=== PATIENT | female | born 1985 | race Caucasian/White ===

== ENCOUNTER 2017-10-12 17:23 | Outpatient (CLI) | payer MEDICAID | END 2017-10-12 18:50 | disposition home or self-care (01) | LOC: OBT 17:23 → L-D 17:24 → OBT 18:50 | DX: O36.8130 Decreased fetal movements, third trimester, not applicable or unspecified (principal); Z3A.38 38 weeks gestation of pregnancy | CPT/HCPCS: 76818 ==

== ENCOUNTER 2017-10-19 16:46 | Outpatient (CLI) | payer MEDICAID ==
[2017-10-19] MEDS: LACTATED RINGER'S 1,000 ML IV (18:17)
== END 2017-10-19 18:48 | disposition home or self-care (01) ==
LOC: OBT 16:46 → L-D 16:47 → OBT 18:48
DX: O62.9 Abnormality of forces of labor, unspecified (principal); Z3A.39 39 weeks gestation of pregnancy
CPT/HCPCS: 36415; 96360

== ENCOUNTER 2017-10-24 11:49 | Inpatient (IN) | payer MEDICAID ==
[2017-10-24] MEDS ORDERED: CEFAZOLIN 2 GM/50 ML (PMX) 50 ML IV ×2 (12:00→20:30)
[2017-10-24] MEDS ORDERED: OXYTOCIN 30 UNITS/LR 500 ML IV ×5 (12:00→20:30)
[2017-10-24] MEDS ORDERED: MISOPROSTOL 200 MCG TAB PR ×3 (12:00→20:30)
[2017-10-24] MEDS ORDERED: METHYLERGONOVINE 0.2 MG INJ IM ×3 (12:00→20:30)
[2017-10-24] MEDS ORDERED: CARBOPROST 250 MCG INJ IM ×3 (12:00→20:30)
[2017-10-24 12:29] LABS: ADD MAN DIFF? NO
[2017-10-24] MEDS: LACTATED RINGER'S 1,000 ML IV ×2 (12:35→22:50)
[2017-10-24 12:38] LABS: BASOPHILS % 0.3 % (0.0-2.0); EOSINOPHILS # 0.1 10^3/ul (0.0-0.5); EOSINOPHILS % 1.3 % (0.0-7.0); HEMATOCRIT 36.4 % (37.0-47.0); HEMOGLOBIN 12.6 g/dl (12.0-16.0); LYMPHOCYTES # 1.6 10^3/ul (0.8-2.9); LYMPHOCYTES % 25.3 % (15.0-51.0); MEAN CORPUSCULAR HEMOGLOBIN 31.7 pg (29.0-33.0); MEAN CORPUSCULAR HGB CONC 34.6 g/dl (32.0-37.0); MEAN CORPUSCULAR VOLUME 91.7 fl (82.0-101.0); MEAN PLATELET VOLUME 11.6 fl (7.4-10.4); MONOCYTE # 0.3 10^3/ul (0.3-0.9); MONOCYTES % 5.4 % (0.0-11.0); NEUTROPHIL # 4.2 10^3/ul (1.6-7.5); NEUTROPHILS % 67.5 % (39.0-77.0); PLATELET COUNT 191 10^3/UL (140-415); RED BLOOD COUNT 3.97 10^6/ul (4.20-5.40); RED CELL DISTRIBUTION WIDTH 12.6 % (11.5-14.5)
[2017-10-24 12:38] LABS: WHITE BLOOD COUNT 6.2 10^3/ul (4.8-10.8)
[2017-10-24 13:13] LABS: INR 0.93; PARTIAL THROMBOPLASTIN TIME 29.2 Sec (25.0-35.0); PROTIME 12.6 Sec (11.9-14.9)
[2017-10-24 13:23] LABS: HEPATITIS B SURFACE ANTIGEN NEGATIVE (NEGATIVE)
[2017-10-24] MEDS ORDERED: morphine SULFATE/PF (10 MG/10 ML) INJ (16:29)
[2017-10-24] MEDS ORDERED: CITRIC ACID/SODIUM CITRATE 15 ML CUP (16:29)
[2017-10-24] MEDS ORDERED: BUPIVACAINE 0.75%/DEXT (SPINAL) 2 ML INJ (16:29)
[2017-10-24] MEDS ORDERED: PHENYLephrine (100 MCG/ML) 5ML SYG ×2 (16:38→17:10)
[2017-10-24] MEDS ORDERED: EPHEDrine SULFATE 50 MG/5 ML SYG (16:42)
[2017-10-24] MEDS ORDERED: ONDANSETRON 4 MG INJ (16:47)
[2017-10-24 17:23] LABS: RAPID PLASMA REAGIN NONREACTIVE (NR)
[2017-10-24] MEDS ORDERED: METOCLOPRAMIDE 10 MG INJ (17:36)
[2017-10-24] MEDS: METOCLOPRAMIDE 10 MG INJ IV (17:46)
[2017-10-24] MEDS ORDERED: ONDANSETRON 4 MG INJ IV ×2 (18:00→21:30)
[2017-10-24] MEDS ORDERED: PROCHLORPERAZINE 10 MG INJ IV (18:00)
[2017-10-24] MEDS ORDERED: DIPHENHYDRAMINE 50 MG INJ IV ×2 (18:00→21:30)
[2017-10-24] MEDS ORDERED: MEPERIDINE 25 MG INJ IV (18:00)
[2017-10-24] MEDS ORDERED: FENTAnyl 50 MCG/ML VIAL IV ×3 (18:00)
[2017-10-24] MEDS ORDERED: HYDROmorphONE 1 MG/5 ML IV SYRINGE IV ×3 (18:00)
[2017-10-24] MEDS: CITRIC ACID/SODIUM CITRATE 15 ML CUP PO (18:47)
[2017-10-24] MEDS: KETOROLAC 30 MG INJ IV (18:47)
[2017-10-24] MEDS ORDERED: LACTATED RINGER'S 1,000 ML IV (20:11)
[2017-10-24] MEDS ORDERED: LANOLIN 7 GM TUBE TOP (20:30)
[2017-10-24] MEDS ORDERED: NA PHOSPHATE/BIPHOS 133 ML ENEMA PR ×2 (20:30)
[2017-10-24] MEDS: SENNA/DOCUSATE NA (8.6MG/50MG) TAB PO (21:00)
[2017-10-24] MEDS ORDERED: SENNA/DOCUSATE NA (8.6MG/50MG) TAB PO (21:00)
[2017-10-24] MEDS ORDERED: HYDROmorphONE 0.5 MG/0.5 ML SYG IV ×2 (21:30)
[2017-10-24] MEDS ORDERED: ZOLPIDEM 5 MG TAB PO (21:30)
[2017-10-24] MEDS ORDERED: NALOXONE (0.4 MG/ML) INJ IV (21:30)
[2017-10-24] MEDS ORDERED: IBUPROFEN 800 MG TAB PO (22:00)
[2017-10-24] MEDS: CEFAZOLIN 2 GM/50 ML (PMX) 50 ML IV (22:42)
[2017-10-25] MEDS: CEFAZOLIN 2 GM/50 ML (PMX) 50 ML IV ×2 (04:31→12:28)
[2017-10-25] MEDS: KETOROLAC 30 MG INJ IV ×2 (08:26→16:36)
[2017-10-25] MEDS: SENNA/DOCUSATE NA (8.6MG/50MG) TAB PO ×2 (09:04→22:13)
[2017-10-25] MEDS: LACTATED RINGER'S 1,000 ML IV (09:05)
[2017-10-25 09:29] LABS: ADD MAN DIFF? NO
[2017-10-25 09:36] LABS: BASOPHILS % 0.2 % (0.0-2.0); EOSINOPHILS % 0.3 % (0.0-7.0); HEMOGLOBIN 11.8 g/dl (12.0-16.0); LYMPHOCYTES # 1.4 10^3/ul (0.8-2.9); LYMPHOCYTES % 11.6 % (15.0-51.0); MEAN CORPUSCULAR HEMOGLOBIN 32.3 pg (29.0-33.0); MEAN CORPUSCULAR HGB CONC 34.7 g/dl (32.0-37.0); MEAN CORPUSCULAR VOLUME 93.2 fl (82.0-101.0); MEAN PLATELET VOLUME 11.1 fl (7.4-10.4); MONOCYTE # 0.6 10^3/ul (0.3-0.9); MONOCYTES % 4.7 % (0.0-11.0); NEUTROPHIL # 9.8 10^3/ul (1.6-7.5); NEUTROPHILS % 82.8 % (39.0-77.0); PLATELET COUNT 165 10^3/UL (140-415); RED BLOOD COUNT 3.65 10^6/ul (4.20-5.40); RED CELL DISTRIBUTION WIDTH 12.4 % (11.5-14.5)
[2017-10-25 09:36] LABS: WHITE BLOOD COUNT 11.8 10^3/ul (4.8-10.8)
[2017-10-25 17:35] LABS: ADD MAN DIFF? NO
[2017-10-25 17:39] LABS: BASOPHILS % 0.1 % (0.0-2.0); EOSINOPHILS # 0.1 10^3/ul (0.0-0.5); EOSINOPHILS % 0.5 % (0.0-7.0); HEMATOCRIT 34.1 % (37.0-47.0); HEMOGLOBIN 11.5 g/dl (12.0-16.0); LYMPHOCYTES # 1.4 10^3/ul (0.8-2.9); LYMPHOCYTES % 13.4 % (15.0-51.0); MEAN CORPUSCULAR HEMOGLOBIN 31.3 pg (29.0-33.0); MEAN CORPUSCULAR HGB CONC 33.7 g/dl (32.0-37.0); MEAN CORPUSCULAR VOLUME 92.9 fl (82.0-101.0); MONOCYTE # 0.5 10^3/ul (0.3-0.9); NEUTROPHIL # 8.3 10^3/ul (1.6-7.5); NEUTROPHILS % 80.5 % (39.0-77.0); PLATELET COUNT 168 10^3/UL (140-415); RED BLOOD COUNT 3.67 10^6/ul (4.20-5.40); RED CELL DISTRIBUTION WIDTH 12.8 % (11.5-14.5)
[2017-10-25 17:39] LABS: WHITE BLOOD COUNT 10.3 10^3/ul (4.8-10.8)
[2017-10-25] MEDS: IBUPROFEN 800 MG TAB PO (22:13)
[2017-10-26] MEDS: IBUPROFEN 800 MG TAB PO ×3 (05:29→21:43)
[2017-10-26 06:58] LABS: ADD MAN DIFF? NO
[2017-10-26 07:02] LABS: WHITE BLOOD COUNT 9.4 10^3/ul (4.8-10.8)
[2017-10-26 07:02] LABS: BASOPHILS % 0.3 % (0.0-2.0); EOSINOPHILS # 0.2 10^3/ul (0.0-0.5); EOSINOPHILS % 1.7 % (0.0-7.0); HEMATOCRIT 32.7 % (37.0-47.0); HEMOGLOBIN 11.2 g/dl (12.0-16.0); LYMPHOCYTES # 1.8 10^3/ul (0.8-2.9); LYMPHOCYTES % 19.3 % (15.0-51.0); MEAN CORPUSCULAR HEMOGLOBIN 31.8 pg (29.0-33.0); MEAN CORPUSCULAR HGB CONC 34.3 g/dl (32.0-37.0); MEAN CORPUSCULAR VOLUME 92.9 fl (82.0-101.0); MEAN PLATELET VOLUME 11.3 fl (7.4-10.4); MONOCYTE # 0.5 10^3/ul (0.3-0.9); MONOCYTES % 5.3 % (0.0-11.0); NEUTROPHIL # 6.9 10^3/ul (1.6-7.5); PLATELET COUNT 166 10^3/UL (140-415); RED BLOOD COUNT 3.52 10^6/ul (4.20-5.40)
[2017-10-26] MEDS: SENNA/DOCUSATE NA (8.6MG/50MG) TAB PO ×2 (10:13→21:43)
[2017-10-26] MEDS ORDERED: OXYCODONE/ACETAMINOPHEN (5/325) TAB PO ×2 (18:00→18:30)
[2017-10-26] MEDS: OXYCODONE/ACETAMINOPHEN (5/325) TAB PO (18:24)
[2017-10-26] MEDS ORDERED: HYDROCODONE/APAP (5/325) TAB PO ×3 (18:30)
[2017-10-26] MEDS: BISACODYL 10 MG SUPP PR (21:43)
[2017-10-27] MEDS: LACTATED RINGER'S 1,000 ML IV (00:31)
[2017-10-27] MEDS: CLINDAMYCIN 300 MG CAP PO ×3 (05:23→11:44)
[2017-10-27] MEDS: IBUPROFEN 800 MG TAB PO ×2 (05:23→14:20)
[2017-10-27] MEDS ORDERED: DIPHTH/TET/ACEL PERTUSS (ADULT) 0.5 ML VIAL IM* (09:00)
[2017-10-27] MEDS: SENNA/DOCUSATE NA (8.6MG/50MG) TAB PO (09:26)
[2017-10-27] MEDS: LANOLIN 7 GM TUBE TOP (09:26)
[2017-10-27] MEDS: OXYCODONE/ACETAMINOPHEN (5/325) TAB PO (11:50)
[2017-10-27] MEDS: DIPHTH/TET/ACEL PERTUSS (ADULT) 0.5 ML VIAL IM* (14:53)
== END 2017-10-27 16:10 | disposition home or self-care (01) | DRG 766 ==
LOC: L-D 11:49 → PP1 19:40
PROVIDERS: Obstetrics & Gynecology
PROC: 10D00Z1 Extraction of Products of Conception, Low, Open Approach (ICD-10-PCS; principal; 2017-10-24 15:30)
DX: O34.211 Maternal care for low transverse scar from previous cesarean delivery (principal); O48.0 Post-term pregnancy; Z3A.40 40 weeks gestation of pregnancy; Z37.0 Single live birth
CPT/HCPCS: 85025; 85610; 85730; 86592; 86850; 86900; 86901; 87340; 90715; 99464